=== PATIENT | female | born 1960 | race Caucasian/White ===

== ENCOUNTER → 2018-08-07 08:45 | Outpatient (CLI) | payer BC, SELFPAY ==
[2018-08-07 09:22] LABS: Hemoglobin A1C 6.8 % (0.0-7.0)
[2018-08-07 09:23] LABS: Creatinine,Urine Random 123 mg/dL (20-320)
[2018-08-07 10:30] LABS: Alanine Aminotransferase 28 U/L (12-78); Albumin Level 3.8 gm/dL (3.4-5.0); Albumin/Globulin Ratio 1.1 (1.1-1.8); Alkaline Phosphatase 133 U/L (46-116); Anion Gap 9.6 mEq/L (5-15); Aspartate Amino Transferase 14 U/L (15-37); Bilirubin,Total 0.4 mg/dL (0.2-1.0); Blood Urea Nitrogen 15 mg/dL (7-18); Calcium 9.5 mg/dL (8.5-10.1); Carbon Dioxide 33 mmol/L (21.0-32.0); Chloride 106 mmol/L (98-107); Chol/HDL Ratio 2.2 (1-3.5); Cholesterol 145 mg/dL (140-200); Creatinine,Serum 0.72 mg/dL (0.55-1.02); Estimated Glomerular Filt Rate 84 ml/min (>60); GFR (African American) 101 ML/MIN (>60); Globulin 3.5 gm/dl (1.3-3.2); Glucose 141 mg/dL (74-106); HDL Cholesterol 67 mg/dL (29-89); LDL Cholesterol 46 mg/dL (0-130); Potassium 4.6 mmoL/L (3.5-5.1); Sodium 144 mmol/L (136-145); Thyroid Stimulating Hormone 2.27 uIU/ml (0.358-3.740); Total Protein,Serum 7.3 gm/dL (6.4-8.2); Triglycerides 162 mg/dL (30-200); VLDL Cholesterol 32 mg/dL (0-40)
[2018-08-09 16:50] LABS: Microalbumin, Urine 12.2 ug/mL (Not Estab.)
== END ==
PROVIDERS: PCP Family Medicine; Visit Provider Family Medicine
DX: E11.9 Type 2 diabetes mellitus without complications (principal); E78.2 Mixed hyperlipidemia
CPT/HCPCS: 36415; 80053; 80061; 82043; 82570; 83036; 84443

== ENCOUNTER → 2018-08-21 09:19 | Outpatient (CLI) | payer BC, SELFPAY ==
--- NOTE | 2018-08-21 09:22 | MM_ITS ---
MM Dig screening mamm BI w/CAD ORDERING PHYSICIAN : Musa Farah MD PATIENT AGE: 57 years GENDER: Female COMPARISON: August 2017, June 2011 INDICATION: ITS.REASON: SCREENING 57-year-old. No hormones no new complaints. Family history with breast cancer: . Maternal aunts x2. Paternal aunt. Paternal cousin. TECHNIQUE: Standard CC and MLO images were obtained. R2 CAD reviewed. FINDINGS: Moderately dense fibroglandular elements are seen at the retroareolar region bilaterally. Similar distribution and appearance to previous studies with no new suspicious or dominant mass. No suspicious calcifications. Scattered benign calcifications again seen bilaterally. RIGHT BREAST:No significant new findings. Follow up one year LEFT BREAST:. No significant new findings. A series a small dense round punctate calcifications at the medial retroareolar region is slightly denser and more evident bladder limited benign and can be followed. IMPRESSION: No new findings of significant concern. Bilateral follow-up in one year BI-RADS Category: 1 Negative RECOMMENDED FOLLOW-UP: 1YR 1 YEAR FOLLOW-UP (A letter has been sent to the patient regarding results of the study.)
== END ==
PROVIDERS: PCP Family Medicine; Visit Provider Family Medicine
DX: Z12.31 Encounter for screening mammogram for malignant neoplasm of breast (principal)
CPT/HCPCS: 77067

== ENCOUNTER → 2019-07-18 07:10 | Outpatient (CLI) | payer BC, SELFPAY ==
[2019-07-18 09:40] LABS: Creatinine,Urine Random 88 mg/dL (20-320)
[2019-07-18 10:10] LABS: Alanine Aminotransferase 28 U/L (12-78); Albumin Level 3.8 gm/dL (3.4-5.0); Albumin/Globulin Ratio 1.2 (1.1-1.8); Alkaline Phosphatase 102 U/L (46-116); Anion Gap 14.6 mEq/L (5-15); Aspartate Amino Transferase 14 U/L (15-37); Bilirubin,Total 0.2 mg/dL (0.2-1.0); Blood Urea Nitrogen 21 mg/dL (7-18); Calcium 9.4 mg/dL (8.5-10.1); Carbon Dioxide 27 mmol/L (21.0-32.0); Chloride 105 mmol/L (98-107); Chol/HDL Ratio 2.4 (1-3.5); Cholesterol 124 mg/dL (140-200); Creatinine,Serum 0.73 mg/dL (0.55-1.02); Estimated Glomerular Filt Rate 82 ml/min (>60); GFR (African American) 99 ML/MIN (>60); Globulin 3.3 gm/dl (1.3-3.2); Glucose 143 mg/dL (74-106); HDL Cholesterol 52 mg/dL (29-89); LDL Cholesterol 39 mg/dL (0-130); Potassium 4.6 mmoL/L (3.5-5.1); Sodium 142 mmol/L (136-145); Thyroid Stimulating Hormone 2.66 uIU/ml (0.358-3.740); Total Protein,Serum 7.1 gm/dL (6.4-8.2); Triglycerides 166 mg/dL (30-200); VLDL Cholesterol 33 mg/dL (0-40)
[2019-07-20 11:43] LABS: Microalbumin, Urine 16.8 ug/mL (Not Estab.)
== END ==
PROVIDERS: Visit Provider Family Medicine
DX: E11.9 Type 2 diabetes mellitus without complications (principal); E78.2 Mixed hyperlipidemia; Z79.84 Long term (current) use of oral hypoglycemic drugs
CPT/HCPCS: 36415; 80053; 80061; 82043; 82570; 83036; 84443

== ENCOUNTER → 2020-02-06 09:58 | Outpatient (CLI) | payer BC, SELFPAY ==
--- NOTE | 2020-02-06 10:02 | XR_ITS ---
PROCEDURE: XR KNEE RT 3V CLINICAL INDICATION: KNEE PAIN Knee pain COMPARISON: No exams were available for comparison FINDINGS: No fracture or dislocation. No lytic or blastic change. There is normal mineralization. There is slight decrease in the joint space medially with minimal spurring along the posterior patella Other findings:None. IMPRESSION: Minimal osteoarthritic change otherwise negative Dictated by: Leighton Hirsch MD 02/06/2020 11:18 Electronically signed by Leighton Hirsch MD in [place] 02/06/2020 11:18
--- NOTE | 2020-02-06 10:02 | XR_ITS ---
PROCEDURE: XR KNEE LT 3V CLINICAL INDICATION: KNEE PAIN COMPARISON: No exams were available for comparison FINDINGS: No fracture or dislocation. No lytic or blastic change. There is normal mineralization. There is mild chondrocalcinosis involving both medial and lateral meniscus. There is slight decrease in the joint space medially with minimal osteophytes at the posterior patella. Other findings:None. IMPRESSION: Mild osteoarthritis with chondrocalcinosis Dictated by: Leighton Hirsch MD 02/06/2020 11:17 Electronically signed by Leighton Hirsch MD in [place] 02/06/2020 11:17
== END ==
PROVIDERS: PCP Family Medicine; Visit Provider Family Medicine
DX: M25.562 Pain in left knee (principal); M25.561 Pain in right knee
CPT/HCPCS: 73562

== ENCOUNTER → 2020-09-10 07:25 | Outpatient (CLI) | payer BC, SELFPAY ==
[2020-09-10 08:19] LABS: Microalbumin/Creatinine Ratio 31.8
[2020-09-10 08:23] LABS: Creatinine,Urine Random 128 mg/dL (Not Estab.)
[2020-09-10 08:42] LABS: Hemoglobin A1C 6.5 % (4.0-6.0)
[2020-09-10 08:59] LABS: Chloride 101 mmol/L (98-107); Sodium 141 mmol/L (136-145)
[2020-09-10 09:00] LABS: Potassium 4.3 mmoL/L (3.5-5.1)
[2020-09-10 09:02] LABS: Alanine Aminotransferase 21 U/L (12-78); Albumin Level 4.5 g/dl (3.5-5.0); Albumin/Globulin Ratio 1.7 (1.1-1.8); Alkaline Phosphatase 110 U/L (38-126); Anion Gap 14.3 mEq/L (5-15); Aspartate Amino Transferase 27 U/L (14-36); Bilirubin,Total 0.4 mg/dl (0.2-1.3); Blood Urea Nitrogen 17 mg/dl (7-17); Carbon Dioxide 30 mmol/L (22.0-30.0); Cholesterol 140 mg/dl (140-200); Estimated Glomerular Filt Rate 86 ml/min (>60); GFR (African American) 104 ML/MIN (>60); Globulin 2.7 g/dL (1.3-3.2); Total Protein,Serum 7.2 g/dl (6.3-8.2); Triglycerides 202 mg/dl (30-150); VLDL Cholesterol 40 mg/dL (0-40)
[2020-09-10 09:03] LABS: Calcium 9.8 mg/dl (8.4-10.2); Chol/HDL Ratio 2.1 (1-3.5); Glucose 110 mg/dl (74-100); HDL Cholesterol 67 mg/dl (40-60)
[2020-09-10 09:14] LABS: Direct LDL Cholesterol 48.59 mg/dL (100-129)
== END ==
PROVIDERS: Visit Provider Family Medicine
DX: E78.2 Mixed hyperlipidemia (principal); E11.9 Type 2 diabetes mellitus without complications; Z79.84 Long term (current) use of oral hypoglycemic drugs
CPT/HCPCS: 36415; 80053; 80061; 82043; 82570; 83036; 84443

== ENCOUNTER → 2021-03-27 10:14 | Outpatient (CLI) | payer BC, SELFPAY ==
--- NOTE | 2021-03-27 10:19 | XR_ITS ---
PROCEDURE: XR KNEE RT 4V CLINICAL INDICATION: BL knee pain COMPARISON: DX XR KNEE LT 3V from 02/06/2020 DX XR KNEE RT 3V from 02/06/2020 FINDINGS: No fracture or dislocation. No lytic or blastic change. There is normal mineralization. Early degenerative changes with prominence of the intercondylar tubercles are noted. Mild medial compartment joint space loss. Early osteophyte formation. Other findings:No significant soft tissue abnormality. No suprapatellar joint effusion. IMPRESSION: Early degenerative changes of the knee joint. No acute fractures or dislocations. Dictated by: Rosy Dale 03/27/2021 12:16 Rosy Dale in [place] 03/27/2021 12:16
--- NOTE | 2021-03-27 10:19 | XR_ITS ---
PROCEDURE: XR KNEE LT 4V CLINICAL INDICATION: BL knee pain COMPARISON: DX XR KNEE LT 3V from 02/06/2020 DX XR KNEE RT 3V from 02/06/2020 FINDINGS: Degenerative changes of the knee joint are noted with mild medial compartment joint space loss and early osteophyte formation. Bone density is normal. No acute fractures or dislocations. No suprapatellar joint effusion. Visualized soft tissues are unremarkable. IMPRESSION: Mild medial compartment joint space loss and early osteophyte formation. No acute fractures or dislocations. Dictated by: Rosy Dale 03/27/2021 12:06 Rosy Dale in [place] 03/27/2021 12:06
== END ==
PROVIDERS: PCP Family Medicine; Visit Provider Orthopaedic Surgery
DX: M17.12 Unilateral primary osteoarthritis, left knee (principal); M17.11 Unilateral primary osteoarthritis, right knee
CPT/HCPCS: 73564

== ENCOUNTER → 2021-06-30 08:06 | Outpatient (CLI) | payer BC, SELFPAY ==
--- NOTE | 2021-06-30 09:05 | MM_ITS ---
PROCEDURE: MM DIG SCREENING MAMM BI W/CAD Digital Breast Tomosynthesis Included CLINICAL INDICATION: SCREENING COMPARISON: MG Screening-Bilateral Mammography from 07/14/2011 MG [facility] DIG MAMM-SCREEN [facility] W/CAD from 08/19/2017 MG [facility] MM Dig screening mamm BI w/CAD from 08/21/2018 TECHNIQUE: Standard CC and MLO images and 3D Tomosynthesis was obtained. R2 CAD reviewed. FINDINGS: Average fibroglandular tissue. There are bilateral benign-appearing calcifications. New probably benign-appearing calcifications are present in the lower inner aspect of the right breast.. On the left there are benign-appearing calcifications as well with a noon curvilinear area of calcification in the outer aspect of the left breast probably benign. No malignant appearing or malignant-appearing microcalcification. IMPRESSION: Probably benign findings. Short-term follow-up suggested. BI-RAD Category: 3 Probably Benign Finding Short Term Follow-Up FOLLOW-UP: 6M 6 Month Follow-up (A letter has been sent to the patient regarding results of the study.) Dictated by: Leighton Hirsch MD 07/06/2021 10:52 Leighton Hirsch MD in [place] 07/06/2021 10:52
== END ==
PROVIDERS: PCP Family Medicine; Visit Provider Family Medicine
DX: Z12.31 Encounter for screening mammogram for malignant neoplasm of breast (principal)
CPT/HCPCS: 77063; 77067

== ENCOUNTER → 2021-08-20 08:17 | Outpatient (CLI) | payer BC, SELFPAY ==
[2021-08-20 09:25] LABS: Chloride 102 mmol/L (98-107); Sodium 140 mmol/L (136-145)
[2021-08-20 09:26] LABS: Potassium 4.9 mmoL/L (3.5-5.1)
[2021-08-20 09:28] LABS: Alanine Aminotransferase 20 U/L (12-78); Alkaline Phosphatase 120 U/L (38-126); Anion Gap 13.9 mEq/L (5-15); Aspartate Amino Transferase 26 U/L (14-36); Bilirubin,Total 0.4 mg/dl (0.2-1.3); Blood Urea Nitrogen 18 mg/dl (7-17); Carbon Dioxide 29 mmol/L (22.0-30.0); Cholesterol 128 mg/dl (140-200); Estimated Glomerular Filt Rate 102 ml/min (>60); GFR (African American) 124 ML/MIN (>60); Triglycerides 156 mg/dl (30-150); VLDL Cholesterol 31 mg/dL (0-40)
[2021-08-20 09:29] LABS: Albumin Level 4.2 g/dl (3.5-5.0); Albumin/Globulin Ratio 1.4 (1.1-1.8); Calcium 9.8 mg/dl (8.4-10.2); Chol/HDL Ratio 2.2 (1-3.5); Glucose 113 mg/dl (74-100); HDL Cholesterol 58 mg/dl (40-60); Total Protein,Serum 7.2 g/dl (6.3-8.2)
[2021-08-20 09:39] LABS: Direct LDL Cholesterol 46.15 mg/dL (100-129)
[2021-08-20 10:00] LABS: Thyroid Stimulating Hormone 2.71 uIU/mL (0.465-4.68)
[2021-08-20 10:17] LABS: Creatinine,Urine Random 181 mg/dL (Not Estab.); Microalbumin/Creatinine Ratio 30.6
== END ==
PROVIDERS: Visit Provider Family Medicine
DX: E11.9 Type 2 diabetes mellitus without complications (principal); E78.1 Pure hyperglyceridemia; E78.2 Mixed hyperlipidemia; Z79.84 Long term (current) use of oral hypoglycemic drugs
CPT/HCPCS: 36415; 80053; 80061; 82043; 82570; 83036; 84443

== ENCOUNTER → 2021-12-31 14:29 | Outpatient (CLI) | payer BC, SELFPAY ==
--- NOTE | 2021-12-31 14:34 | MM_ITS ---
PROCEDURE INFORMATION: Exam: MG Bilateral Diagnostic Breast Tomosynthesis Exam date and time: 12/31/2021 2:34 PM Age: 61 years old Clinical indication: 6 month follow up calcifications TECHNIQUE: Imaging protocol: Bilateral Diagnostic tomosynthesis and 2D mammography including computer-aided detection (CAD) when performed. Unilateral or bilateral exam. COMPARISON: 1. MG MM DIG SCREENING MAMM BI W/CAD 06/30/2021 8:38 AM 2. MG [facility] MM Dig screening mamm BI w/CAD 08/21/2018 9:26 AM FINDINGS: MAMMOGRAPHY: Digital diagnostic magnification views of inferior breast demonstrates stable fairly uniformly dense calcifications bilaterally. No new microcalcifications. IMPRESSION: Stable calcifications bilaterally to prior mammogram dated 06/30/2021. A six-month follow-up diagnostic mammogram magnification views are recommended for continued close surveillance unless otherwise clinically indicated. ASSESSMENT: BI-RADS Category 3: Probably benign
== END ==
PROVIDERS: PCP Family Medicine; Visit Provider Family Medicine
DX: R92.8 Other abnormal and inconclusive findings on diagnostic imaging of breast (principal)
CPT/HCPCS: 77062; 77066; G0279

== ENCOUNTER → 2022-06-25 09:23 | Outpatient (CLI) | payer BC, SELFPAY ==
--- NOTE | 2022-06-25 09:27 | XR_ITS ---
FINAL REPORT TECHNIQUE: Bone mineral density was calculated of the lumbar spine and hip. CLINICAL HISTORY: . post menopausal screening FINDINGS: DEXA BONE DENSITY AXIAL SKELETON Using L1-4, the bone mineral density of the spine is 1.025 g/cm2, corresponding to T-score of -0.2. Using the left hip, the bone mineral density of the femoral neck is 0.763 g/cm2, corresponding to a T-score of -0.8. NOTE: T-score: Standard deviation compared with peak bone mass of young adult mean. *Following the recommendations of the International Society of Bone densitometry, classification of hip BMD is based on the lower of two T-scores; total hip or femoral neck. IMPRESSION: Normal bone mineral density of the lumbar spine and left hip. Reviewed, Interpreted and Dictated by Todd Jose III, MD Transcribed by Laura Purvis Authenticated and [facility]
== END ==
PROVIDERS: PCP Family Medicine; Visit Provider Family Medicine
DX: Z13.820 Encounter for screening for osteoporosis (principal); Z78.0 Asymptomatic menopausal state
CPT/HCPCS: 77080

== ENCOUNTER → 2022-09-16 10:37 | Outpatient (CLI) | payer BC, SELFPAY ==
--- NOTE | 2022-09-16 10:44 | XR_ITS ---
FINAL REPORT CLINICAL HISTORY: LT TOE PAIN FINDINGS: LEFT FOOT Three views of the left foot demonstrate no acute fracture or dislocation. There is a small plantar calcaneal spur. The visualized joint spaces are normally aligned. The soft tissues are unremarkable. IMPRESSION: No acute bony abnormality. Reviewed, Interpreted and Dictated by Todd Jose III, MD Transcribed by Shahram Wilburn Authenticated and [facility]
--- NOTE | 2022-09-16 10:44 | XR_ITS ---
FINAL REPORT CLINICAL HISTORY: HAMMER TOE DEFORMITY FINDINGS: RIGHT FOOT 3 views of the right foot were obtained. There is no acute fracture or dislocation. There is a 2nd digit hammertoe deformity. There is a small calcaneal spur. Soft tissues are unremarkable. IMPRESSION: No acute bony abnormality. Reviewed, Interpreted and Dictated by Todd Jose III, MD Transcribed by Shahram Wilburn Authenticated and [facility]
== END ==
PROVIDERS: PCP Family Medicine; Visit Provider Family Medicine
DX: M20.41 Other hammer toe(s) (acquired), right foot (principal); M79.675 Pain in left toe(s)
CPT/HCPCS: 73630

== ENCOUNTER → 2023-03-17 12:47 | Outpatient (CLI) | payer BC, SELFPAY ==
--- NOTE | 2023-03-17 12:52 | MM_ITS ---
PROCEDURE INFORMATION: Exam: MG Bilateral Screening 3D Mammography Exam date and time: 03/17/2023 12:49 PM Age: 62 years old Clinical indication: Continued six-month follow-up recommended for a bilateral calcifications, from 06/30/2021 and 12/31/2021. Screening. TECHNIQUE: Imaging protocol: Bilateral Screening tomosynthesis and 2D mammography including computer-aided detection (CAD) when performed. COMPARISON: 1. MG MM DIG MAMM BI DX W/CAD 12/31/2021 2:34 PM 2. MG MM DIG SCREENING MAMM BI W/CAD 06/30/2021 8:38 AM 3. MG [facility] MM Dig screening mamm BI w/CAD 08/21/2018 9:26 AM 4. MG [facility] DIG MAMM-SCREEN [facility] W/CAD 08/19/2017 4:08 PM FINDINGS: MAMMOGRAPHY: Breast composition: There are scattered areas of fibroglandular density. Mass: None. Architectural distortion: None. Calcifications: In non magnified views, fairly uniform dense calcifications bilaterally in both inferior breasts. No new microcalcifications. Asymmetric density: None. Skin thickening: None. Axillary adenopathy: None. IMPRESSION: Patient will be recalled for bilateral magnification views in CC and true lateral as recommended on 12/31/2021 mammogram. ASSESSMENT: BI-RADS Category 0: Incomplete- Need Additional Imaging Evaluation and/or Prior Mammograms for Comparison
== END ==
PROVIDERS: PCP Family Medicine; Visit Provider Family Medicine
DX: Z12.31 Encounter for screening mammogram for malignant neoplasm of breast (principal)
CPT/HCPCS: 77063; 77067

== ENCOUNTER 2023-10-13 16:15 | Emergency (ER) | payer OTHER, BC, SELFPAY ==
--- NOTE | 2023-10-13 16:15 | PC.NURSE ---
Dr. Lombardi at [facility] for pt eval
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
[2023-10-13 16:24] VITALS: BP 154/79; PULSE 80; RESP 20; TEMP 36.8; O2SAT 99; BMI 30.9
[2023-10-13 16:30] VITALS: BP 166/77; PULSE 89; O2SAT 94
[2023-10-13 19:41] VITALS: BP 160/87; PULSE 81; RESP 18; TEMP 36.8; O2SAT 96
== END 2023-10-13 19:42 | disposition home or self-care (01) ==
PROVIDERS: Emergency Provider Emergency Medicine
DX: R07.89 Other chest pain (principal); E11.9 Type 2 diabetes mellitus without complications; K21.9 Gastro-esophageal reflux disease without esophagitis; Z79.84 Long term (current) use of oral hypoglycemic drugs; V49.40XA Driver injured in collision with unspecified motor vehicles in traffic accident, initial encounter; Y92.410 Unspecified street and highway as the place of occurrence of the external cause
CPT/HCPCS: 70450; 71250; 72125; 99285